=== PATIENT | male | born 1970 | race African-American/Black ===

== ENCOUNTER 2020-06-26 21:14 | Observation (INO) | payer OTHER ==
[~2020-06-26] VITALS: Ht 177.8 cm; Wt 83.6 kg
[2020-06-26 21:29] VITALS: BP 150/90
[2020-06-26 21:51] LABS: ABSOLUTE BASOPHILS 0.1 thou/uL (0.0-0.2); ABSOLUTE EOSINOPHILS 0.1 thou/uL (0.0-0.7); ABSOLUTE LYMPHOCYTES 1.5 thou/uL (0.8-5.3); ABSOLUTE MONOCYTES 0.9 thou/uL (0.0-1.2); ABSOLUTE NEUTROPHILS 8.9 thou/uL (1.6-8.1); BASOPHILS 0.6 %; EOSINOPHILS 0.5 %; HEMATOCRIT 40.3 % (42.0-52.0); HEMOGLOBIN 13.1 gm/dL (14.0-18.0); LYMPHOCYTES 12.8 %; MCH 29.3 pg (26.0-34.0); MCHC 32.5 g/dL (28.0-37.0); MCV 90.3 fL (80.0-100.0); MONOCYTES 7.7 %; MPV 8.4 fl. (7.2-11.1); NUCLEATED RBCS 0 /100WBC; PLATELET COUNT* 281 thou/uL (150-400); POLYS 78.4 %; RBC 4.46 mil/uL (4.50-6.00); RDW-CV 12.2 % (10.5-14.5); WBC 11.4 thou/uL (4.0-11.0)
[2020-06-26 22:03] LABS: CALCIUM 9.1 mg/dL (8.5-10.1); CREATININE 1.1 mg/dL (0.6-1.3); POTASSIUM 4.1 mmol/L (3.5-5.1)
[2020-06-26 22:04] LABS: PROTIME 10.3 Seconds (9.20-11.50)
[2020-06-26 22:08] LABS: ALBUMIN 3.4 g/dL (3.4-5.0); TOTAL BILIRUBIN 0.3 mg/dL (<0.1-1.0); TOTAL PROTEIN 7.7 g/dL (6.4-8.2)
[2020-06-26 22:57] LABS: URINE BILIRUBIN NEGATIVE (Negative); URINE BLOOD NEGATIVE (Negative); URINE CLARITY CLEAR; URINE COLOR YELLOW; URINE GLUCOSE-RANDOM NEGATIVE (Negative); URINE KETONES TRACE (Negative); URINE LEUKOCYTES-REFLEX TRACE (Negative); URINE NITRITE-REFLEX NEGATIVE (Negative); URINE PROTEIN NEGATIVE (Negative); URINE SPECIFIC GRAVITY >= 1.030 (1.005-1.030)
[2020-06-26 23:05] LABS: AMP/METHAMP Negative (Negative); BACTERIA-REFLEX >30 Many /HPF (None Seen); BARBITURATES Negative (Negative); BENZODIAZEPINES Negative (Negative); CASTS None Seen /LPF (None Seen); COCAINE Negative (Negative); CRYSTALS None Seen /LPF (None Seen); METHADONE Negative (Negative); MUCUS 4-6 Moderate strn/LPF (None Seen); OPIATES Negative (Negative); PCP Negative (Negative); SQUAMOUS 0-3 Few /LPF (0-3); THC POSITIVE (Negative); URINE RBC 3-10 Few /HPF (0-2); URINE WBC-REFLEX >25 Many /HPF (0-5); WBC CLUMPS Moderate (None Seen)
[2020-06-27] VITALS (7 sets, daily range): BP systolic 123–166; BP diastolic 83–98
[2020-06-27] MEDS ORDERED: ASA81BEC PO (08:01)
[2020-06-27] MEDS ORDERED: CEFUROXIME250 MG PO (08:01)
--- NOTE | 2020-06-27 09:05 | EKG ---
[place] [address] ELECTROCARDIOGRAM REPORT Name: UTE BRENNER Room: [address]R.#: [id number] Admission: 06/27/20 Attend Phys: Sivakumar Parsons, Discharge: Date of : 74 Date of Service: 06/26/20 2149 Report #: [id number] THIS REPORT FOR: //name// [facility] ED Test Date: 2020-06-26 Test Time: 21:49:48 Pat Name: UTE BRENNER Department: Room: [facility] Gender: M [employer] Buyer: KASH : 1970 Requested By: Reshma Garrido Order Number: [id number] MD: Stan Phillip Measurements Intervals [place] Rate: 123 P: 71 MS: 143 QRS: -39 QRSD: 85 T: 53 QT: 299 QTc: 428 Interpretive Statements Sinus tachycardia Left axis deviation ST elevation, consider anterior injury No previous ECG available for comparison Electronically Signed On 06-27-2020 9:04:48 [employer] by Stan Phillip [email or web address] <ELECTRONICALLY SIGNED> By: Stan Phillip MD, [facility] 06/27/20 0904 2149 2149 Stan Phillip MD, [facility] /EPI
[2020-06-28] VITALS (9 sets, daily range): BP systolic 110–135; BP diastolic 78–86
== END 2020-06-28 17:27 | disposition home or self-care (01) ==
LOC: M.ERS 21:14 → M.2W 23:57 → M.TBA-ER 23:57 → M.2W 06-27 01:18 → M.TBA-ER 06-27 01:18 → M.2W 06-28 17:27
PROVIDERS: Emergency Medicine; ADMIT Internal Medicine; ATTEND Internal Medicine
DX: T33.831A Superficial frostbite of right toe(s), initial encounter (principal); F12.10 Cannabis abuse, uncomplicated; I73.9 Peripheral vascular disease, unspecified; N30.80 Other cystitis without hematuria; F17.210 Nicotine dependence, cigarettes, uncomplicated; Z59.0 Homelessness; Z79.82 Long term (current) use of aspirin; Z79.899 Other long term (current) drug therapy; Z20.828 Contact with and (suspected) exposure to other viral communicable diseases; X31.XXXA Exposure to excessive natural cold, initial encounter; Y93.89 Activity, other specified; Y92.89 Other specified places as the place of occurrence of the external cause